=== PATIENT | male | born 1990 | race Two or more races ===

== ENCOUNTER 2024-09-16 20:50 | Emergency (ER) | payer MEDICAID, SELFPAY ==
[2024-09-16 20:50] VITALS: BMI 29.0
[2024-09-16 20:55] VITALS: BP 147/93; PULSE 132; RESP 18; TEMP 36.9; O2SAT 97
--- NOTE | 2024-09-16 23:35 | EDNOTE_ITS ---
ED Psych RME/HPI General Chief Complaint: Suicidal Stated Complaint: SUICIDE ATTEMPT Time Seen by Provider: 09/16/24 23:29 Arrival date/time: 09/16/24 20:50 Limitations: no limitations RME / HPI RME / HPI Narrative: Dr. Washburn's Main ED Evaluation: 34yo male presents to the ED for SI. Patient attempted to slit his wrists with a razor just prior to coming to the ED. Patient denies any HI or hallucinations. Patient denies any alcohol or drug use. He denies any history of similar symptoms. Related Data Allergies Allergy/AdvReac Type Severity Reaction Status Date / Time Penicillins Allergy Mild Rash Verified 09/16/24 20:52 Review of Systems Review of Systems Systems Reviewed: All systems reviewed, normal except as documented Past Medical History Past Medical History CARDIAC: Negative Congestive Heart Failure RESPIRATORY: Negative Chronic Obstructive Pulmonary Disease (COPD) GENITOURINARY: Negative Renal Disease ENDOCRINE: Negative Diabetes Mellitus Type 1 or Diabetes Mellitus Type 2 Social History SMOKING STATUS: Never smoker ED Exam General Limitations: Present no limitations General appearance: Present alert and in no apparent distress Head Head exam: Present atraumatic Eye Eye exam: Present normal appearance, PERRL and EOMI ENT ENT exam: Present normal exam, normal oropharynx and mucous membranes moist Neck Neck exam: Present normal inspection, full ROM and trachea midline Chest Chest inspection: Present normal inspection and symmetric chest wall rise Respiratory Respiratory exam: Present normal lung sounds bilaterally Cardiovascular Cardiovascular exam: Present regular rate, normal rhythm and normal heart sounds Abdominal Exam Abdominal exam: Present soft and normal bowel sounds Extremities Exam Extremities exam: Present normal inspection and full ROM Back Exam Back exam: Present normal inspection and full ROM Neurological Exam Neurological exam: Present alert, oriented X3 and CN II-XII intact Psychiatric Psychiatric exam: Present normal affect and normal mood Skin Skin exam: Present warm, dry, normal color and other (6 cm linear superficial laceration that is 1.5 cm deep to the left wrist; 5 cm linear superficial laceration that is 1.5 cm deep to the right wrist; no tendon visibility; patient has normal extension and flexion of both wrists and fingers) Course Quality Measures none Orders Category Date Time Status Irrigate Wound NOW Care 09/16/24 23:35 Active Alcohol, Urine Stat Lab 09/16/24 23:14 Completed Drug Screen,Urine Stat Lab 09/16/24 23:14 Completed Lidocaine 1% W/Epi 1:100K 20Ml [Xylocaine 1% w/Epi 1: Med 09/16/24 23:35 Discontinued 100K 20 ml] 20 ml INFL X1 ONE TET,DIP/PERT AC (Adult)-Tdap [Boostrix Adult (Tdap) Med 09/16/24 23:35 Discontinued Vacc] 0.5 ml IMI .ONCE ONE Vital Signs Vital signs: Vital Signs Temperature 98.4 F 09/16/24 20:55 Pulse Rate 132 H 09/16/24 20:55 Respiratory Rate 18 09/16/24 20:55 Blood Pressure 147/93 H 09/16/24 20:55 Pulse Oximetry (%) 97 09/16/24 20:55 Oxygen Delivery Method Room Air 09/16/24 20:55 PROCEDURES: Laceration Laceration 1: Site: upper extremity (wrist) Side (If applicable): left Size (cm): 6 Description: linear Depth: simple, single layer Local Anesthetic: lidocaine 1% and with epi Amount of anesthesia used (mL): 5 Pre-repair: irrigated extensively Skin layer closed with: other (ethilon) Suture size (cm): 4-0 Number of sutures: 6 Technique: simple, interrupted Laceration 2: Site: upper extremity (wrist) Side (If applicable): right Size (cm): 5 Description: linear Depth: simple, single layer Local Anesthetic: lidocaine 1% and with epi Amount of anesthesia used (mL): 5 Pre-repair: irrigated extensively Skin layer closed with: other (ethilon) Suture size (cm): 4-0 Number of sutures: 6 Technique: simple, interrupted Psych MDM Narrative MDM Narrative:: Scribe Attestation: 09/16/24 Florence Saxena am scribing for and in the presence of Dr. Washburn. Patient is medically clear for crisis evaluation. 0600: Care signed out to Dr. Thao (emergency physician). Past medical, surgical, social and family history reviewed. Vitals and home medications reviewed. Results and treatment plan discussed. They will assume the care of the patient at this time and will follow the patient, pending crisis evaluation. Patient data External records reviewed:: [facility] previous records (Per chart review, patient has no previous ED visits or admissions to this facility.) Clinical information provided by:: patient Social determinants that could affect healthcare access:: mental health Patient has the following chronic illnesses:: none How is presenting disease/condition affected by chronic disease/condition?: no chronic disease Evaluation data The following diagnostics were reviewed and interpreted by me:: lab results Lab and/or radiology exams considered but not ordered:: none Interpretation Summary: UDS negative. Urine alcohol negative. Medications / Prescriptions Medications or Prescriptions considered but not ordered:: none Medication administrations:: Medication Administration History Discontinued Medications Diphtheria/Tetanus/Acell Pertussis (Diphth,Pertuss(Acell),Tet Vac 0.5 Ml Syr- Adult) 0.5 ml IMi .ONCE ONE Stop: 09/16/24 23:36 Last Admin: 09/17/24 00:05 Dose: 0.5 ml Documented By: JOSE RAMON Lidocaine/Epinephrine (Lidocaine 1% W/Epi 1:100k 20 Ml Vial) 20 ml INFL X1 ONE Stop: 09/16/24 23:36 Last Admin: 09/17/24 00:03 Dose: 20 ml Documented By: JOSE RAMON see above Consultations Consultation(s) initiated? (list below): No Diagnosis Psych Differential Diagnosis: suicidal ideation, depression and acute anxiety Most likely diagnosis given after review of the tests above:: see clinical impression below Admission Indicated Admission indicated?: not indicated Admission Request Was there a request for admission?: No Disposition Plan Disposition Plan: other (specify) (Signed out to Dr. Thao at 6 AM.) Discharge Plan Prescriptions/Referrals Referrals: No Primary/Family,Physician [Primary Care Provider] - In 1 week Problem List Clinical Impression: Suicidal ideation Patient/Caregiver Discharge Instructions Print Language: Macedonian
[2024-09-17] LABS: Alcohol, Urine Negative (Negative); Amphetamine/Methamp Scrn,U Negative (Negative); Barbiturate Screen,Urine Negative (Negative); Benzodiazepines Screen,Urine Negative (Negative); Benzoylecgonine Screen, Ur Negative (Negative); Fentanyl Screen,Urine Negative (Negative); Opiate Screen,Urine Negative (Negative); THC Screen,Urine Negative (Negative)
[2024-09-17] MEDS: LIDOCAINE 1% W/EPI 1:100K 20 ML VIAL INFL (00:03)
[2024-09-17] MEDS: DIPHTH,PERTUSS(ACELL),TET VAC 0.5 ML SYR- ADULT IMi (00:05)
--- NOTE | 2024-09-17 01:37 | PC.NURSE ---
WOUND WAS DRESSED PER PROVIDER REQUEST
[2024-09-17 02:31] VITALS: BP 117/79; PULSE 99; RESP 18; TEMP 36.9; O2SAT 97
[2024-09-17 06:00] VITALS: BP 121/71; PULSE 90; RESP 18; TEMP 36.7; O2SAT 97
--- NOTE | 2024-09-17 07:16 | PD.EDADDENDU ---
Emergency Room Addendum Addendum Narrative: 0600: Care assumed from Dr. Bray, the previous shift emergency physician. Past medical, surgical, social and family history reviewed. Vitals and home medications reviewed. I will assume the care of the patient at this time, pending mental health evaluation and final disposition. Please refer to the emergency department record for history and examination from initial visit.?The following addendum documentation note is intended to reflect any pending information, findings, or radiology results not included in the patient?s initial chart. 0835: Patient is medically cleared for mental health evaluation and placement if indicated. 0845: ASW has evaluated the patient and is placed on a 5150 hold, pending LPS facility placement. Patient has been accepted for transfer by Dr. Mcintosh at [facility], EMS p/u 12:10. 1110: EMS here to transfer patient. He has remained stable through ED course and was transferred in stable condition.
[2024-09-17 07:23] LABS: Basophils # (Auto) 0.1 Thou/mm3 (0.0-0.2); Basophils % (Auto) 1 % (0-2.5); Eosinophils # (Auto) 0.1 Thou/mm3 (0.0-0.5); Eosinophils % (Auto) 1 % (0-10); Hematocrit 38.4 % (41.0-53.0); Hemoglobin 13.1 g/dL (13.5-16.0); Immature Granulocytes Auto 0.02 Thou/mm3 (0.00-0.00); Lymphocytes # (Auto) 2.7 Thou/mm3 (1.0-4.8); Lymphocytes % (Auto) 23 % (10-50); Mean Corpuscular HGB Conc 34.1 g/dl (31.0-37.0); Mean Corpuscular Hemoglobin 31.3 pg (25.0-35.0); Mean Corpuscular Volume 92 fL (80-100); Monocytes # (Auto) 0.8 Thou/mm3 (0.0-0.8); Monocytes % (Auto) 6 % (0-12); Neutrophils # (Auto) 8.4 Thou/mm3 (1.8-7.7); Neutrophils % (Auto) 70 % (37-80); Nucleated Red Blood Cell # 0.00 Thou/mm3 (0.00-0.00); Nucleated Red Blood Cell % 0 /100 WBC (0); Platelet Count 240 Thou/mm3 (140-440); RDW Standard Deviation 45.5 fL (35.1-43.9); Red Blood Count 4.19 Miln/mm3 (4.50-5.90); White Blood Count 12.1 Thou/mm3 (3.8-10.6)
[2024-09-17 07:42] LABS: Alanine Aminotransferase 30 U/L (10-49); Albumin, Serum 4.2 gm/dL (3.5-5.0); Albumin/Globulin Ratio 1.8 (1.2-2.2); Alkaline Phosphatase 70 U/L (46-116); Anion Gap 7 (7-16); Aspartate Amino Transferase 22 U/L (0-34); BUN/Creatinine Ratio 8 Ratio (12-20); Bilirubin,Total 0.8 mg/dL (0.3-1.2); Blood Urea Nitrogen 7 mg/dL (9-23); Calcium 8.9 mg/dL (8.3-10.6); Calcium (Corrected) 8.9 mg/dL (8.5-10.1); Carbon Dioxide 26.0 mMol/L (20.0-31.0); Chloride 110 mMol/L (98-107); Creatinine (Component) 0.9 mg/dL (0.6-1.3); Estimated Creatinine Clearance 114.9 mL/min (>60); Globulin 2.4 gm/dL (2.3-3.5); Glucose 102 mg/dL (74-106); Osmolality,Calculated 282 (275-295); Potassium 3.6 mMol/L (3.4-5.1); Sodium 143 mMol/L (136-145); Total Protein 6.6 gm/dL (5.7-8.2); eGFR > 60 See Note
[2024-09-17 08:00] VITALS: BP 121/79; PULSE 119; RESP 18; TEMP 37.1; O2SAT 97
--- NOTE | 2024-09-17 08:46 | PC.CC ---
Patient is a 34 year-old male who presents to the hospital for suicide attempt. It was reported that patient attempted to end his life by cutting of his bilateral wrist with a razor. Patient needed 6 suture on each wrist. Woo made ugbt-to-swhf contact with patient to complete assessment. ELECTRIC LOCOMOTIVE CRANE OPERATOR introduced self, role, and reason for assessment. ELECTRIC LOCOMOTIVE CRANE OPERATOR disclosed limits of confidentiality as well. Patient appeared alert and oriented to self, place, and situation. At bedside was patient?s mother, Mary Leal . Patient made appropriate eye contact but appeared to be depressed with a flat-affect and low-tone of voice. No signs of delusions, paranoid or V/h. Patient reports he has been depressed for multiple years but has never has sought out help. ELECTRIC LOCOMOTIVE CRANE OPERATOR explored with patient if there was an event that led him to attempting to end his life. Patient reports he just wanted to end it all ?nothing to look forward to.? At the time of encounter the patient continues to disclose suicidal ideations. Patient is denying past suicide attempts. Patient denied homicidal ideations, visual and auditory hallucination. Per patient, he has never been connected to outpatient mental health services and does not have a formal diagnosis of depression but feels sadness and depressed. Per mother Mary, she reports that patient told her he attempted suicide yesterday and was bleeding from both wrist. She is the person who drove him to the hospital. She disclosed that patient internalizes everything and isolates himself. Mother reports he does not engage with people outside the home and keeps to himself most of the time. She confirmed that he is not connected to outpatient mental health services and has never been. Patient scored High-Risk on the [place] Screening. Patient is able to ambulate independently and complete his own ADLs. His toxicology was negative. Upon clinical consultation with ELECTRIC LOCOMOTIVE CRANE OPERATOR, Khloe Perea patient will be placed on a 5150-hold for Danger to Self. Patient was provided with verbal advisement and provided with Patient?s Rights Handbook. ASW provided update of discharge plan to [facility] Facility to medical team. ASW to send referral to [facility] Facilities on [facility].
--- NOTE | 2024-09-17 09:59 | PC.CC ---
Patient was accepted to [place] by Dr. Dayna Contehress. Nurse to Nurse is [phone] ext [phone]. URBAN ANTHROPOLOGIST provided update to medical team of accepting facility. URBAN ANTHROPOLOGIST provided update to patient. URBAN ANTHROPOLOGIST to arrange transportation.
[2024-09-17 10:00] VITALS: BP 132/90; PULSE 107; RESP 18; TEMP 36.9; O2SAT 99
[2024-09-17 11:14] VITALS: BP 145/91; PULSE 107; RESP 18; TEMP 36.9; O2SAT 95
--- NOTE | 2024-09-17 11:23 | PC.NURSE ---
REPORT GIVEN TO AMARJIT SANDOVAL AT [facility]
== END 2024-09-17 11:14 ==
PROVIDERS: Emergency Medicine; Emergency Provider Family Medicine
DX: S61.512A Laceration without foreign body of left wrist, initial encounter (principal); S61.511A Laceration without foreign body of right wrist, initial encounter; X78.8XXA Intentional self-harm by other sharp object, initial encounter; Z23 Encounter for immunization
CPT/HCPCS: 12004; 36415; 80053; 80307; 80320; 85025; 90471; 90715; 96127; 99283; J3490; G0480